=== PATIENT | male | born 1985 | race Caucasian/White ===

== ENCOUNTER 2019-04-14 06:31 | Day surgery (SDC) | payer BC ==
[~2019-04-14 06:31] MED LIST: ceFAZolin 2 GM in Premix Bag 1 BAG IV ONE
[2019-04-14] MEDS ORDERED: Midazolam 1 MG/ML 2 ML SDV ONE ×2 (07:04→07:46)
[2019-04-14] MEDS ORDERED: fentaNYL 100 MCG/2 ML SDV ONE (07:04)
[2019-04-14] MEDS ORDERED: Propofol 200 MG/20 ML SDV ONE ×3 (07:04→08:25)
[2019-04-14] MEDS ORDERED: Lidocaine 1% with EPINEPHrine 1:100,000 50 ML MDV ONE (07:06)
[2019-04-14] MEDS ORDERED: Bupivacaine 0.5% 50 ML MDV ONE (07:06)
[2019-04-14] MEDS ORDERED: Dextrose 5%-Lactated Ringers 1,000 ML IV SCH (07:30)
[2019-04-14] MEDS ORDERED: Acetaminophen/HYDROcodone 325-5 MG Tab PO PRN (09:16)
--- NOTE | 2019-04-14 09:45 | OR ---
DATE OF PROCEDURE: 04/14/2019 PREOPERATIVE DIAGNOSIS: Incarcerated umbilical hernia. POSTOPERATIVE DIAGNOSIS: Incarcerated with omentum, umbilical hernia . PROCEDURE: Repair of incarcerated umbilical hernia. SURGEON: Silvino Reeder MD ANESTHESIA: IV anesthesia with monitored anesthesia care. INDICATION: This 33-year-old white male has an incarcerated umbilical hernia. This has been present he says for about 5 years. He is now requesting it to be repaired. I counseled him for repair of this possibly with mesh, including risks and alternatives, and gave his informed consent to proceed. DESCRIPTION OF PROCEDURE: After adequate IV anesthesia was obtained, the patient's abdomen was prepped and draped in the usual sterile fashion. Time-out was held. Lidocaine 1% with epinephrine in a 50:50 mix with 0.5% Marcaine was infiltrated about the umbilicus. A semicircular infraumbilical incision was made. The associated umbilical hernia was dissected free from the overlying skin. The sac was opened and excised. It was noted to be incarcerated with omentum. We excised some of the omentum and reduced the residual amount back into the abdomen. The defect was quite small. This was just closed then with a figure- of- eight stitch of 0 Prolene. The umbilicus was then attached to the underlying fascia with an interrupted stitch of 3-0 Vicryl. 4-0 Vicryl using a subcuticular stitch was placed to approximate the skin. Dermabond and a sterile dressing were applied. The patient tolerated the procedure well and was brought to the recovery room in good condition. Silvino Reeder MD /[id number]
== END 2019-04-14 10:15 | disposition home or self-care (01) ==
LOC: JP.SDS 06:31
PROVIDERS: ATTEND Surgery
DX: K42.0 Umbilical hernia with obstruction, without gangrene (principal); E66.01 Morbid (severe) obesity due to excess calories; R03.0 Elevated blood-pressure reading, without diagnosis of hypertension; Z68.39 Body mass index [BMI] 39.0-39.9, adult; Z79.899 Other long term (current) drug therapy
CPT/HCPCS: 49587; A9270; J0690; J2250; J2704; J3010; J3490; J7042